=== PATIENT | female | born 1955 | race Caucasian/White ===

== ENCOUNTER → 2016-07-22 | Outpatient (CLI) | payer MEDICARE, MEDICAID ==
--- NOTE | 2016-07-22 14:39 | RAD ---
EXAM DESCRIPTION: XR KNEE 4 OR MORE VIEWS CLINICAL HISTORY: 61 y/o ,F, RT KNEE PAIN COMPARISON: May 25, 2014 IMPRESSION: Right knee arthroplasty noted. Patellar resurfacing noted. There is a small joint effusion noted. No evidence of hardware failure. No evidence of surrounding osteolysis or fracture on today's study. Electronically signed by: Jarvis Hollingsworth MD 07/22/2016 14:38
== END ==
LOC: RAD 12:21
PROVIDERS: ATTEND Nurse Practitioner Family
DX: M25.561 Pain in right knee (principal); M25.461 Effusion, right knee; Z96.651 Presence of right artificial knee joint

== ENCOUNTER → 2016-09-23 | Outpatient (CLI) | payer MEDICARE, MEDICAID ==
--- NOTE | 2016-09-23 13:28 | RAD ---
EXAM DESCRIPTION: Foot,Left 3 Views CLINICAL HISTORY: 61 years Female, GOUT IMPRESSION: Three views of the left foot demonstrate a calcaneal spur and gastrocnemius enthesophyte. Degenerative change of the first MTP joint noted. No fracture noted. The characteristic findings of gout including overhanging edges and tophi are not visualized on today's study. Electronically signed by: Jarvis Hollingsworth MD 09/23/2016 1:26 PM CDT
== END | disposition home or self-care (01) ==
LOC: YCFC.O 12:32
PROVIDERS: ATTEND Nurse Practitioner Family
DX: M10.9 Gout, unspecified (principal)

== ENCOUNTER → 2016-10-27 | Outpatient (CLI) | payer MEDICARE, MEDICAID ==
--- NOTE | 2016-10-28 08:55 | RAD ---
EXAM DESCRIPTION: Foot,Right 3 Views CLINICAL HISTORY: 61 years Female, RT HEEL PAIN IMPRESSION: Three views of right foot. Severe degenerative change of the first MTP joint with complete joint space loss, subchondral sclerosis and large osteophytes. Gastrocnemius enthesophyte and plantar spur noted. No fracture. No radiopaque foreign body. Electronically signed by: Jarvis Hollingsworth MD 10/28/2016 8:54 AM CDT
== END | disposition home or self-care (01) ==
LOC: RAD 15:57
PROVIDERS: ATTEND Nurse Practitioner Family
DX: M77.31 Calcaneal spur, right foot (principal)

== ENCOUNTER 2017-04-25 11:46 | Emergency (ER) | payer MEDICARE, MEDICAID ==
[2017-04-25] MEDS ORDERED: HYDROcodone 5MG/APAP 325MG 1 EA TAB PO ONE (12:02)
[2017-04-25 12:04] VITALS: BP 136/75; TEMP 98; O2SAT 95
--- NOTE | 2017-04-25 12:19 | RAD ---
EXAM DESCRIPTION: Ankle,Right 3 Views CLINICAL HISTORY: 61 years Female, lateral ankle pain after twisting COMPARISON: None. TECHNIQUE: 3 views FINDINGS: Plantar calcaneal spur formation. Mortise configuration is intact. No fractures identified. There is lateral soft tissue swelling. IMPRESSION: Lateral soft tissue swelling No fractures Electronically signed by: Nikunj Alexander 04/25/2017 12:18 PM CDT
[2017-04-25] MEDS ORDERED: NEOMYCIN-BACITRACIN-POLYMYXIN 0.9 GM UD TOP ONE (12:22)
--- NOTE | 2017-04-25 12:29 | ED.PDOC ---
History of Present Illness - General Chief Complaint: Lower Extremity Injury Stated Complaint: twisted right ankle/post heel surgery Time Seen by Provider: 04/25/17 12:00 Source: patient Exam Limitations: no limitations - History of Present Illness Initial Comments: the patient is a 61-year-old female presenting to the emergency room secondary to pain in her right ankle after having twisted it this morning. She is primarily having pain over the lateral aspect of the ankle. No gross deformity except there is some swelling around the ankle. She did already have some swelling due to a previous surgery with podiatry for a foot spur. There is a small pustule along the line of the surgical line to the posterior aspect of the heel from that surgery 3 weeks ago. There is mild surrounding erythema. She has tenderness to palpation around the operative site but reports that it has been that way since the surgery itself. She has follow-up with that surgeonand approximately 2-3 weeks.the ankle mortise itself appears stable. There is no bony crepitus. No laceration. No tenderness over the fifth metacarpal. She appears to be neurovascularly at her baseline. Timing/Duration: momentarily Severity: moderate Improving Factors: immobilization Worsening Factors: movement Associated Symptoms: denies symptoms Allergies/Adverse Reactions: Allergies NO KNOWN ALLERGY Allergy (Verified 04/24/13 11:30) Home Medications: Ambulatory Orders Fsunxfhepegxr-Ncpp-Nvawrakyyv [Fioricet] 1 ea PO Q8H PRN #21 tab 04/25/17 Sulfa/Trimeth 800/160 (Ds) Tab [Bactrim DS Tab] 1 ea PO BID #20 tab 04/25/17 Review of Systems - Review of Systems Constitutional: States: no symptoms reported EENTM: States: no symptoms reported Respiratory: States: no symptoms reported Cardiology: States: no symptoms reported Gastrointestinal/Abdominal: States: no symptoms reported Genitourinary: States: no symptoms reported Musculoskeletal: States: see HPI Skin: States: no symptoms reported Neurological: States: no symptoms reported Endocrine: States: no symptoms reported All other Systems: No Change from Baseline Past Medical History (General) - Patient Medical History Hx Diabetes: Yes Hx MRSA: Yes - Back 2009 MRSA Source:: Wound Surgical History: other - Social History Hx Tobacco Use: Yes Family Medical History - Family History Father Living Status: Age at (years of age): 75 Hx Family Cancer: Yes Hx Family;Other: COPD Physical Exam - Physical Exam General Appearance: Alert, Comfortable, No apparent distress Eye Exam: bilateral normal Ears, Nose, Throat: hearing grossly normal Neck: full range of motion, normal inspection Respiratory: no respiratory distress, no accessory muscle use Cardiovascular/Chest: normal peripheral pulses, no edema, other - regular rate Peripheral Pulses: radial,right: 2+, radial,left: 2+, dorsalis pedis,right: 2+, dorsalis pedis,left: 2+ Rectal Exam: deferred Extremity: normal range of motion, no calf tenderness, normal capillary refill, other - see history of present illness Neurologic: tool builder II-XII nml as tested, alert, normal mood/affect, oriented x 3 Skin Exam: normal color - ith the exception of the mild cellulitis surrounding the posterior right heel. Comments: Vital Signs - 24 hr 04/25/17 11:50 Temperature 98.0 F Pulse Rate [ 89 pulse ox] Respiratory 22 Rate Blood Pressure 136/75 [left brachial] O2 Sat by Pulse 95 Oximetry Progress - Progress Progress: 04/25/17 12:31 the patient is a 61-year-old female presenting to the emergency room secondary to twisting her right ankle. This appears to be an ankle sprain only as the x- ray of the ankle shows no evidence of fracture or dislocation. The patient does have a mild cellulitis surrounding the pustule to the posterior aspect of the right heel along the line of the previous surgical site. We did unroofed the pustule and perform a culture. The patient is going to be placed on 10 days of Bactrim. She does need to take this with food. She needs to follow-up with her primary care doctor around the middle of next week for the culture result and a reevaluation of the area. She needs to continue to use her walking boot. Obviously if the area is getting more red or she starts developing a fever then she will need a repeat evaluation. ER warnings were given otherwise. Departure - Departure Clinical Impression: Cellulitis of heel, right Right ankle sprain Qualifiers: Encounter type: initial encounter Involved ligament of ankle: unspecified ligament Qualified Code(s): S93.401A - Sprain of unspecified ligament of right ankle, initial encounter Disposition: Discharge to Home or Self Care Condition: Fair Departure Forms: ED Discharge - Pt. Copy, Patient Portal Self Enrollment Instructions: DI for Trauma Diet: regular diet Activity: increase activity as tolerated Referrals: Julio Cesar Lebron MD [Primary Care Provider] - 1-5 Days Prescriptions: Hylisijufamzq-Eytq-Pegfdbhgtk [Fioricet] 1 ea PO Q8H PRN #21 tab PRN Reason: Pain Sulfa/Trimeth 800/160 (Ds) Tab [Bactrim DS Tab] 1 ea PO BID #20 tab Home Medications: Ambulatory Orders Qacugwjlvhhjy-Pjrt-Frzqsahkwe [Fioricet] 1 ea PO Q8H PRN #21 tab 04/25/17 Sulfa/Trimeth 800/160 (Ds) Tab [Bactrim DS Tab] 1 ea PO BID #20 tab 04/25/17 Additional Instructions: the patient is a 61-year-old female presenting to the emergency room secondary to twisting her right ankle. This appears to be an ankle sprain only as the x- ray of the ankle shows no evidence of fracture or dislocation. The patient does have a mild cellulitis surrounding the pustule to the posterior aspect of the right heel along the line of the previous surgical site. We did unroofed the pustule and perform a culture. The patient is going to be placed on 10 days of Bactrim. She does need to take this with food. She needs to follow-up with her primary care doctor around the middle of next week for the culture result and a reevaluation of the area. She needs to continue to use her walking boot. Obviously if the area is getting more red or she starts developing a fever then she will need a repeat evaluation. ER warnings were given otherwise.
== END 2017-04-25 12:46 | disposition home or self-care (01) ==
LOC: ER 11:46
DX: S93.401A Sprain of unspecified ligament of right ankle, initial encounter (principal); L03.115 Cellulitis of right lower limb; E11.9 Type 2 diabetes mellitus without complications; Z86.14 Personal history of Methicillin resistant Staphylococcus aureus infection; Z79.899 Other long term (current) drug therapy; X50.1XXA Overexertion from prolonged static or awkward postures, initial encounter; Y92.9 Unspecified place or not applicable

== ENCOUNTER → 2017-10-01 | Outpatient (CLI) | payer MEDICARE, MEDICAID ==
--- NOTE | 2017-10-02 08:10 | RAD ---
EXAM DESCRIPTION: KUB CLINICAL HISTORY: ABDOMINAL DISTENSION (GASEOUS) COMPARISON: CT abdomen May 26, 2016 TECHNIQUE: KUB FINDINGS: Moderate amount of fecal material seen in the right colon and transverse colon whereas the descending colon and rectal region appear clear. There is an otherwise unremarkable bowel gas pattern. Mild degenerative sclerosis at the SI joints. Transitional lumbosacral vertebrae is present. Degenerative changes are seen of the pubic symphysis. There is no mass or visceromegaly or calculus observed. IMPRESSION: No acute process. Electronically signed by: Nas Espinoza MD 10/02/2017 8:07 AM CDT
== END ==
LOC: RAD 09:20
PROVIDERS: ATTEND Nurse Practitioner Family
DX: R14.0 Abdominal distension (gaseous) (principal)

== ENCOUNTER 2018-03-05 02:07 | Emergency (ER) | payer MEDICARE, MEDICAID ==
[2018-03-05] MEDS ORDERED: KETOROLAC TROMETHAMINE INJ 30 MG/ML VIAL IM ONE (02:28)
[2018-03-05] MEDS ORDERED: HYDROcodone 7.5MG/APAP 325MG 1 EA TAB PO ONE (02:28)
[2018-03-05] MEDS ORDERED: CYCLOBENZAPRINE HCL 10 MG TAB PO ONE (02:28)
[2018-03-05] MEDS ORDERED: predniSONE 20 MG TAB PO ONE (02:28)
--- NOTE | 2018-03-05 02:30 | ED.PDOC ---
History of Present Illness - General Chief Complaint: Back Pain or Injury Stated Complaint: rt side lower back pain. Time Seen by Provider: 03/05/18 02:09 Source: patient Exam Limitations: no limitations - History of Present Illness Initial Comments: the patient's a 62-year-old female presenting to emergency room secondary to right lower back pain. The patient does have known chronic DJD of the lumbar spine and does get exacerbations on that side about 3 or 4 times per year according to her. She has not recently injured it however she did overdo it about 3 days ago and has since been having some muscle spasm on that side that has gotten worse. No sciatica down the leg. No incontinence. No weakness. No trauma. She does have obvious palpable muscle spasm. No spinous process tenderness to palpation. No bruising. No step-off. Timing/Duration: other Severity: severe Improving Factors: immobilization Worsening Factors: movement Associated Symptoms: denies symptoms Allergies/Adverse Reactions: Allergies NO KNOWN ALLERGY Allergy (Verified 04/24/13 11:30) Home Medications: Ambulatory Orders Esrwpmkgrlyzz-Kerz-Agverwfqel [Fioricet] 1 ea PO Q8H PRN #21 tab 04/25/17 Sulfa/Trimeth 800/160 (Ds) Tab [Bactrim DS Tab] 1 ea PO BID #20 tab 04/25/17 Gwxjdpjhodcio-Jcef-Ekpszsomnz [Fioricet] 1 ea PO Q8H PRN #21 tab 03/05/18 Cyclobenzaprine HCl [Flexeril] 5 mg PO TID PRN #30 tab 03/05/18 predniSONE [Prednisone] 20 mg PO DAILY #7 tab 03/05/18 Review of Systems - Review of Systems Constitutional: States: no symptoms reported EENTM: States: no symptoms reported Respiratory: States: no symptoms reported Cardiology: States: no symptoms reported Gastrointestinal/Abdominal: States: no symptoms reported Genitourinary: States: no symptoms reported Musculoskeletal: States: back pain Skin: States: no symptoms reported Neurological: States: no symptoms reported Endocrine: States: no symptoms reported All other Systems: No Change from Baseline Past Medical History (General) - Patient Medical History Hx Diabetes: Yes Hx MRSA: Yes - Back 2009 MRSA Source:: Wound - Social History Hx Tobacco Use: Yes Family Medical History - Family History Father Living Status: Age at (years of age): 75 Hx Family Cancer: Yes Hx Family;Other: COPD Physical Exam - Physical Exam General Appearance: Alert Eye Exam: bilateral normal Ears, Nose, Throat: hearing grossly normal Neck: full range of motion, supple Respiratory: no respiratory distress, no accessory muscle use Cardiovascular/Chest: normal peripheral pulses, no edema Peripheral Pulses: radial,right: 2+, radial,left: 2+ Gastrointestinal/Abdominal: non tender - obese, soft Rectal Exam: deferred Back Exam: muscle spasm, other - see history of present illness Extremity: normal range of motion, non-tender, normal inspection, no pedal edema , normal capillary refill Neurologic: boston cutter II-XII nml as tested, alert, normal mood/affect, oriented x 3 Skin Exam: normal color Progress - Progress Progress: 03/05/18 02:30 the patient's 62-year-old female presenting to emergency room secondary to acute on chronic low back pain. She is having significant muscle spasm adding to her pain. The patient is being given a dose of a muscle relaxer , pain medication, and 2 anti-inflammatories. She'll be placed on outpatient prescriptions of oral prednisone and Flexeril and Fioricet. Topical heat and icy hot or Biofreeze may also prove beneficial. She does need to do stretching exercises to help reduce muscle spasm. ER warnings are given for any significant worsening. She can follow up with her primary care doctor next week. Departure - Departure Clinical Impression: Low back pain Qualifiers: Chronicity: acute Back pain laterality: right Sciatica presence: without sciatica Qualified Code(s): M54.5 - Low back pain Disposition: Discharge to Home or Self Care Condition: Fair Departure Forms: ED Discharge - Pt. Copy, Patient Portal Self Enrollment Instructions: DI for Low Back Pain, DI for Back Strain or Sprain Diet: regular diet Activity: increase activity as tolerated Referrals: Julio Cesar Lebron MD [Primary Care Provider] - 1-2 Weeks Prescriptions: Hfoymodpvagko-Nqlu-Mlgqnhjyvy [Fioricet] 1 ea PO Q8H PRN #21 tab PRN Reason: Pain Cyclobenzaprine HCl [Flexeril] 5 mg PO TID PRN #30 tab PRN Reason: Muscle Spasms predniSONE [Prednisone] 20 mg PO DAILY #7 tab Home Medications: Ambulatory Orders Osyvanrddqtwu-Rsdm-Qfkdqbomcq [Fioricet] 1 ea PO Q8H PRN #21 tab 04/25/17 Sulfa/Trimeth 800/160 (Ds) Tab [Bactrim DS Tab] 1 ea PO BID #20 tab 04/25/17 Zmogseuewdvct-Tqsd-Goadnxfjkw [Fioricet] 1 ea PO Q8H PRN #21 tab 03/05/18 Cyclobenzaprine HCl [Flexeril] 5 mg PO TID PRN #30 tab 03/05/18 predniSONE [Prednisone] 20 mg PO DAILY #7 tab 03/05/18 Additional Instructions: the patient's 62-year-old female presenting to emergency room secondary to acute on chronic low back pain. She is having significant muscle spasm adding to her pain. The patient is being given a dose of a muscle relaxer , pain medication, and 2 anti-inflammatories. She'll be placed on outpatient prescriptions of oral prednisone and Flexeril and Fioricet. Topical heat and icy hot or Biofreeze may also prove beneficial. She does need to do stretching exercises to help reduce muscle spasm. ER warnings are given for any significant worsening. She can follow up with her primary care doctor next week.
[2018-03-05 02:34] VITALS: BP 144/64; TEMP 97.2; O2SAT 96
== END 2018-03-05 02:50 | disposition home or self-care (01) ==
LOC: ER 02:07
DX: M54.5 Low back pain (principal); M47.896 Other spondylosis, lumbar region; E11.9 Type 2 diabetes mellitus without complications; Z88.6 Allergy status to analgesic agent; Z88.2 Allergy status to sulfonamides; Z88.8 Allergy status to other drugs, medicaments and biological substances
CPT/HCPCS: J1885; J7512

== ENCOUNTER → 2019-06-03 | Outpatient (CLI) | payer MEDICARE, MEDICAID ==
--- NOTE | 2019-06-06 11:58 | MAM ---
EXAM DESCRIPTION: 3D Screening BILATERAL : Digital Mammography. CLINICAL HISTORY: 64 years Female ANNUAL SCREENING . No complaints. No personal or family history of breast cancer. Menarche age 12. Childbirth at age 16. Postmenopausal age 55. No HRT. Lifetime risk of developing breast cancer (Tyrer-Cuzick model)(%): 4.7. COMPARISON: 2-D digital screening bilateral mammography 08 March 2014.. TECHNIQUE: Bilateral CC and MLO projection full-field images, digital tomosynthesis mammographic technique Bilateral digital 2-D full-field MLO images. CAD not available for tomosynthesis or 2-D images. FINDINGS: The breast parenchymal density pattern is: Scattered areas of fibroglandular density. No skin thickening or nipple retraction. No new focal, stellate mass or density, focal asymmetry , and no suspicious microcalcifications bilaterally. Stable mammograms compared to prior study. Taking into account, differences in mammographic technique. IMPRESSION: BI-RADS CATEGORY: 1 - NEGATIVE FOLLOW UP: Routine digital bilateral screening, one year interval from May 2019. Written communication explaining the findings and follow-up, will be mailed to the patient and referring health care provider. According to the [employer], yearly mammograms are recommended starting at age 40 and continuing as long as a woman is in good health. Any breast change noted on a breast self-exam should be reported promptly to the patient's healthcare provider. Breast MRI is recommended for women with an approximately 20-25% or greater lifetime risk of breast cancer, including women with a strong family history of breast or ovarian cancer and women who have been treated for Hodgkin's disease. A negative mammographic report should not delay tissue diagnosis in patients with significant clinical history or physical findings. Extremely dense breast tissue limits the sensitivity of digital mammography. Electronically signed by: Aguilar Mireles MD 06/06/2019 11:56 AM [facility]
== END | disposition home or self-care (01) ==
LOC: MAMMO 11:30
PROVIDERS: ATTEND Nurse Practitioner Family
DX: Z12.31 Encounter for screening mammogram for malignant neoplasm of breast (principal)

== ENCOUNTER 2019-06-19 13:03 | Emergency (ER) | payer MEDICARE, MEDICAID ==
[2019-06-19] MEDS ORDERED: ALPRAZolam 0.25 MG TAB PO ONE (13:11)
[2019-06-19 13:23] VITALS: TEMP 98.5
[2019-06-19] MEDS ORDERED: ALPRAZolam 0.5 MG TAB ONE (13:26)
[2019-06-19 14:51] VITALS: O2SAT 100
--- NOTE | 2019-06-19 15:23 | CT ---
EXAM DESCRIPTION: CT head without contrast. CLINICAL HISTORY: new seizure vs seizure like activity . COMPARISON: None Available. TECHNIQUE: Contiguous axial sections are obtained as per protocol. Sagittal and coronal reformations are submitted Automatic exposure control (AEC), mA and/or kV adjustment by patient size, and/or iterative reconstructive technique was used, per departmental dose optimization program, during the performance of the CT examination. FINDINGS: Ventricles, sulci and cisterns appear normal. Normal henry-white matter differentiation is noted. No evidence of intra or extra-axial hemorrhage, hematoma, mass, mass effect or midline shift is noted. The posterior fossa structures appear normal. The bony calvarium appears intact. The soft tissues of the scalp appear unremarkable. Normal appearance of the orbits are noted. The paranasal sinuses and mastoids appear normal. IMPRESSION: Unremarkable non contrast enhanced CT examination of brain. Electronically signed by: Val Oliveira MD 06/19/2019 3:21 PM [employer]ANDSC[employer]IST
--- NOTE | 2019-06-19 15:25 | RAD ---
EXAM: XR Chest, 1 View CLINICAL HISTORY: szr new, vs pseudoseizure TECHNIQUE: Frontal view of the chest. COMPARISON: No relevant prior studies available. FINDINGS: Limitations: None. Lungs: Unremarkable. No consolidation. Pleural space: Unremarkable. No pneumothorax. Heart: Unremarkable. No cardiomegaly. Mediastinum: Unremarkable. Bones/joints: Unremarkable. IMPRESSION: No acute findings in the chest. Electronically signed by: Shanna Nick MD 06/19/2019 3:23 PM DIRECTOR OF CLOUD SERVICES
[2019-06-19 15:26] VITALS: BP 129/78
--- NOTE | 2019-06-19 16:07 | ED.PDOC ---
History of Present Illness - General Chief Complaint: Neuro Symptoms/Deficits Stated Complaint: SEIZURE Time Seen by Provider: 06/19/19 13:10 Source: patient Exam Limitations: no limitations - History of Present Illness Initial Comments: the patient is a 64-year-old female presenting to the emergency room secondary to agitation that started about 20 minutes prior to arrival. The patient is obviously hyperventilating. She is very anxious. She cannot remain still. She is having pushing and pulling and kicking in stopping movements in her extremities. No loss of consciousness. When she is distracted by getting an IV she can be still. When she is distracted by discussing her symptoms she can be still. She is very agitated in general. No focal pain. She does have a [id number] headache. No syncope. Timing/Duration: 1/2 hour Severity: moderate Improving Factors: nothing Worsening Factors: nothing Associated Symptoms: shortness of breath - mild Allergies/Adverse Reactions: Allergies NO KNOWN ALLERGY Allergy (Verified 04/24/13 11:30) Home Medications: Ambulatory Orders Cevsjewruaogr-Mnqi-Gehqcuxtyi [Fioricet] 1 ea PO Q8H PRN #21 tab 04/25/17 Sulfa/Trimeth 800/160 (Ds) Tab [Bactrim DS Tab] 1 ea PO BID #20 tab 04/25/17 Wgiljfsmvtmkb-Duhs-Utbwcyxphu [Fioricet] 1 ea PO Q8H PRN #21 tab 03/05/18 Cyclobenzaprine HCl [Flexeril] 5 mg PO TID PRN #30 tab 03/05/18 predniSONE [Prednisone] 20 mg PO DAILY #7 tab 03/05/18 Review of Systems - Review of Systems Constitutional: States: no symptoms reported EENTM: States: no symptoms reported Respiratory: States: short of breath Cardiology: States: no symptoms reported Gastrointestinal/Abdominal: States: no symptoms reported Genitourinary: States: no symptoms reported Musculoskeletal: States: no symptoms reported Skin: States: no symptoms reported Neurological: States: anxiety, tremors Endocrine: States: no symptoms reported All other Systems: No Change from Baseline Past Medical History (General) - Patient Medical History Hx Diabetes: Yes Hx MRSA: Yes - 2009 MRSA Source:: Wound - Vaccination History Hx Tetanus, Diphtheria Vaccination: No Hx Influenza Vaccination: No Hx Pneumococcal Vaccination: No - Social History Hx Tobacco Use: Yes Hx Alcohol Use: No Family Medical History - Family History Father Living Status: Age at (years of age): 75 Hx Family Cancer: Yes Hx Family;Other: COPD Physical Exam - Physical Exam General Appearance: Alert, Anxious Eye Exam: bilateral normal Ears, Nose, Throat: hearing grossly normal, other - poor dentition Neck: full range of motion, supple Respiratory: lungs clear, normal breath sounds, no respiratory distress, no accessory muscle use Cardiovascular/Chest: normal peripheral pulses, no edema Peripheral Pulses: radial,right: 2+, radial,left: 2+ Gastrointestinal/Abdominal: non tender, soft Rectal Exam: deferred Back Exam: no CVA tenderness, no vertebral tenderness Extremity: normal range of motion, non-tender, normal inspection, no pedal edema, normal capillary refill Neurologic: sizer machine II-XII nml as tested, no motor/sensory deficits, alert, oriented x 3, other - highly agitated and anxious. He is alert and oriented. Skin Exam: normal color Comments: Vital Signs - 24 hr 06/19/19 06/19/19 06/19/19 13:08 13:31 14:30 Temperature 98.5 F Pulse Rate [lef 81 79 76 ] Respiratory 56 H 28 H 19 Rate Blood Pressure 139/70 135/74 123/78 [left brachial] O2 Sat by Pulse 97 97 100 Oximetry 06/19/19 15:00 Temperature Pulse Rate [lef 73 ] Respiratory 24 Rate Blood Pressure 129/78 [left brachial] O2 Sat by Pulse 100 Oximetry Progress - Progress Progress: 06/19/19 16:10 the patient is a 64-year-old female presenting with abnormal movements, obviously hyperventilating and having an anxiety attack along with it. The patient is distractible. I do not believe that this is seizure activity. After further questioning the patient does admit to methamphetamine use. This is likely the source. The patient is no longer having any movement issues and she is much calmer. Vital signs have remained stable. She will be allowed to go home with instructions to discontinue methamphetamine use. Head CT showed no evidence of any acute pathology. - Results/Orders Results/Orders: telemetry shows normal sinus rhythm. EKG shows normal sinus rhythm at [address] segment or T-wave changes indicative of acute ischemia. Slow R-wave progression. Normal axis. Borderline QT interval. Laboratory Results - last 24 hr 06/19/19 06/19/19 06/19/19 13:25 13:25 13:25 WBC 7.5 RBC 4.11 L Hgb 11.9 L Hct 36.4 MCV 88.4 MCH 28.8 MCHC 32.6 L RDW 14.0 Plt Count 331 MPV 8.5 Absolute Neuts (auto) 3.60 Absolute Lymphs (auto) 3.10 Absolute Monos (auto) 0.50 Absolute Eos (auto) 0.20 Absolute Basos (auto) 0.10 Neutrophils % 47.7 Lymphocytes % 41.6 Monocytes % 6.6 Eosinophils % 2.8 Basophils % 1.3 Sodium 141 Potassium 4.1 Chloride 109 Carbon Dioxide 21 Anion Gap 15.1 BUN 13 Creatinine 1.02 BUN/Creatinine Ratio 12.7 POC Glucose 77 Random Glucose 94 Hemoglobin A1c Serum Osmolality 281.1 Lactic Acid Calcium 9.1 Magnesium 2.1 Total Bilirubin 0.6 AST 22 ALT 12 Alkaline Phosphatase 65 Creatine Kinase 93 CK-MB (CK-2) 1.6 CK-MB (CK-2) % Not Reportable Troponin I < 0.02 Serum Total Protein 6.9 Albumin 3.8 Globulin 3.1 Albumin/Globulin Ratio 1.2 TSH 2.18 Urine Color Urine Appearance Urine pH Ur Specific Raven Urine Protein Urine Glucose (UA) Urine Ketones Urine Blood Urine Nitrite Urine Bilirubin Urine Urobilinogen Ur Leukocyte Esterase Urine RBC Urine WBC Ur Epithelial Cells Urine Bacteria Urine Opiates Screen Urine Barbiturates Ur Phencyclidine Scrn U Amphetamin/Meth Scrn U Benzodiazepines Scrn U Cocaine Metab Screen U Cannabinoids Screen 06/19/19 06/19/19 06/19/19 13:25 13:46 13:52 WBC RBC Hgb Hct MCV MCH MCHC RDW Plt Count MPV Absolute Neuts (auto) Absolute Lymphs (auto) Absolute Monos (auto) Absolute Eos (auto) Absolute Basos (auto) Neutrophils % Lymphocytes % Monocytes % Eosinophils % Basophils % Sodium Potassium Chloride Carbon Dioxide Anion Gap BUN Creatinine BUN/Creatinine Ratio POC Glucose Random Glucose Hemoglobin A1c 5.6 Serum Osmolality Lactic Acid 2.1 Calcium Magnesium Total Bilirubin AST ALT Alkaline Phosphatase Creatine Kinase CK-MB (CK-2) CK-MB (CK-2) % Troponin I Serum Total Protein Albumin Globulin Albumin/Globulin Ratio TSH Urine Color Urine Appearance Urine pH Ur Specific Raven Urine Protein Urine Glucose (UA) Urine Ketones Urine Blood Urine Nitrite Urine Bilirubin Urine Urobilinogen Ur Leukocyte Esterase Urine RBC Urine WBC Ur Epithelial Cells Urine Bacteria Urine Opiates Screen Negative Urine Barbiturates Positive H Ur Phencyclidine Scrn Negative U Amphetamin/Meth Scrn Positive H U Benzodiazepines Scrn Negative U Cocaine Metab Screen Negative U Cannabinoids Screen Negative 06/19/19 13:54 WBC RBC Hgb Hct MCV MCH MCHC RDW Plt Count MPV Absolute Neuts (auto) Absolute Lymphs (auto) Absolute Monos (auto) Absolute Eos (auto) Absolute Basos (auto) Neutrophils % Lymphocytes % Monocytes % Eosinophils % Basophils % Sodium Potassium Chloride Carbon Dioxide Anion Gap BUN Creatinine BUN/Creatinine Ratio POC Glucose Random Glucose Hemoglobin A1c Serum Osmolality Lactic Acid Calcium Magnesium Total Bilirubin AST ALT Alkaline Phosphatase Creatine Kinase CK-MB (CK-2) CK-MB (CK-2) % Troponin I Serum Total Protein Albumin Globulin Albumin/Globulin Ratio TSH Urine Color Yellow Urine Appearance Sl cloudy Urine pH 6.0 Ur Specific Raven 1.025 Urine Protein Negative Urine Glucose (UA) Negative Urine Ketones Trace Urine Blood Negative Urine Nitrite Negative Urine Bilirubin Negative Urine Urobilinogen 0.2 Ur Leukocyte Esterase Negative Urine RBC 0 Urine WBC 0 Ur Epithelial Cells 10-20 Urine Bacteria Rare Urine Opiates Screen Urine Barbiturates Ur Phencyclidine Scrn U Amphetamin/Meth Scrn U Benzodiazepines Scrn U Cocaine Metab Screen U Cannabinoids Screen head CT showed no acute intracranial pathology. ee report for details. Departure - Departure Clinical Impression: Substance abuse, Panic attack Disposition: Discharge to Home or Self Care Condition: Fair Departure Forms: ED Discharge - Pt. Copy, Patient Portal Self Enrollment Instructions: Drug Abuse and Drug Addiction (DC), Anxiety, Adult (DC) Diet: regular diet Activity: increase activity as tolerated Referrals: Emi Valencia NP [Primary Care Provider] - 1-2 Weeks Home Medications: Ambulatory Orders Vajmodzsyhbvk-Ziku-Heybvqopgg [Fioricet] 1 ea PO Q8H PRN #21 tab 04/25/17 Sulfa/Trimeth 800/160 (Ds) Tab [Bactrim DS Tab] 1 ea PO BID #20 tab 04/25/17 Ikiprynidcvrl-Avdr-Dnexyohnah [Fioricet] 1 ea PO Q8H PRN #21 tab 03/05/18 Cyclobenzaprine HCl [Flexeril] 5 mg PO TID PRN #30 tab 03/05/18 predniSONE [Prednisone] 20 mg PO DAILY #7 tab 03/05/18 Additional Instructions: The patient is a 64-year-old female that appears to have arrived to the emergency room due to an abnormal reaction to illicit substance use. She needs to discontinue this use. The patient is not diabetic. Her hemoglobin A1c was 5.6. She needs to follow-up with her primary care doctor. ER warnings were given. Workup was reassuring otherwise here.
== END 2019-06-19 16:30 | disposition home or self-care (01) ==
LOC: ER 13:03
DX: F41.0 Panic disorder [episodic paroxysmal anxiety] (principal); F15.10 Other stimulant abuse, uncomplicated; F13.10 Sedative, hypnotic or anxiolytic abuse, uncomplicated; R51 Headache; E11.9 Type 2 diabetes mellitus without complications; Z87.891 Personal history of nicotine dependence

== ENCOUNTER 2020-02-26 12:46 | Emergency (ER) | payer MEDICAID, MEDICARE, OTHER ==
[2020-02-26] MEDS ORDERED: ACETAMINOPHEN 500 MG TAB PO ONE (13:07)
--- NOTE | 2020-02-26 13:21 | ED.PDOC ---
History of Present Illness - General Chief Complaint: Headache Stated Complaint: Headache and possible seizure (not postictal) Time Seen by Provider: 02/26/20 13:06 Source: patient, EMS Exam Limitations: no limitations Additional Information: The patient is a 64 year old with no significant medical history (reports that she has restless legs for which she takes HCTZ?) who is brought in for mental status change, possible seizure. She is currently incarcerated and the correction staff reported finding her "unresponsive and cold" for which they called EMS. Per EMS report, she woke immediately upon arrival as they were going to place an IV. She did not have any tongue biting or any incontinence. She reports one prior similar episode while in correction, she does not have any known seizure history. EMS reports they have seen her before for same complaint and she woke when they were trying to place the IV. The patient states that she does not remember what happened and that she has a generalized headache. No other complaints at this time. - History of Present Illness Timing/Duration: resolved prior to arrival Severity: moderate Improving Factors: nothing Worsening Factors: nothing Associated Symptoms: headaches, seizure Allergies/Adverse Reactions: Allergies NO KNOWN ALLERGY Allergy (Verified 02/26/20 13:10) Home Medications: Ambulatory Orders Hydrochlorothiazide 25 mg PO DAILY 02/26/20 Review of Systems - Review of Systems Constitutional: States: malaise. Denies: chills, fever EENTM: States: no symptoms reported Respiratory: States: no symptoms reported. Denies: cough, short of breath Cardiology: Denies: chest pain, palpitations, syncope Gastrointestinal/Abdominal: Denies: abdominal pain, nausea, vomiting Genitourinary: States: no symptoms reported Musculoskeletal: States: no symptoms reported Skin: Denies: change in color, lesions, rash Neurological: States: headache, seizure. Denies: numbness, weakness Endocrine: States: no symptoms reported Hematologic/Lymphatic: States: no symptoms reported All other Systems: Reviewed and Negative Past Medical History (General) - Patient Medical History Hx Seizures: No Hx Stroke: No Hx of COPD: No Hx Cardiac Disorders: No Hx Congestive Heart Failure: No Hx Hypertension: No Hx Diabetes: No Hx Cancer: No Hx MRSA: Yes - Back 2009 MRSA Source:: Wound - Vaccination History Hx Tetanus, Diphtheria Vaccination: No Hx Influenza Vaccination: No Hx Pneumococcal Vaccination: No - Social History Hx Tobacco Use: No Hx Alcohol Use: Yes Hx Substance Use: No Hx Substance Use Treatment: No Hx Depression: No - Female History Patient is a Female of Child Bearing Age (10 -59 yrs old): No Patient : No Family Medical History - Family History Father Living Status: Age at (years of age): 75 Hx Family Cancer: Yes Hx Family;Other: COPD Physical Exam - Physical Exam General Appearance: Comfortable, No apparent distress Eye Exam: bilateral normal Ears, Nose, Throat: normal ENT inspection, other - no tongue laceration or lesions Neck: non-tender, full range of motion Respiratory: normal breath sounds, no respiratory distress, no accessory muscle use Cardiovascular/Chest: regular rate, rhythm, no murmur Gastrointestinal/Abdominal: non tender, soft Extremity: normal range of motion Neurologic: no motor/sensory deficits, alert, oriented x 3 Progress - Progress Progress: 02/26/20 13:45 EKG STAT Laboratory Results - last 24 hr 02/26/20 02/26/20 13:28 13:50 Sodium 140 Potassium 3.5 L Chloride 103 Carbon Dioxide 27 Anion Gap 13.5 BUN 18 Creatinine 0.98 BUN/Creatinine Ratio 18.4 Random Glucose 128 H Serum Osmolality 282.9 Lactic Acid 1.0 Calcium 9.3 Total Bilirubin 0.7 AST 17 ALT 15 Alkaline Phosphatase 64 Serum Total Protein 7.2 Albumin 4.0 Globulin 3.2 Albumin/Globulin Ratio 1.3 02/26/20 14:21 Patient reassessed, she is awake, alert and oriented. Workup as above. There is no acute intracranial abnormality. Doubt seizure activity. Okay to return to correction facility, follow up with [facility]. - EKG/XRAY/CT Comments: 1254 normal sinus rhythm at 75, normal axis, normal intervals, no STEMI Departure - Departure Clinical Impression: Altered mental status Qualifiers: Altered mental status type: unspecified Qualified Code(s): R41.82 - Altered mental status, unspecified Time of Disposition: 14:22 Disposition: Discharge to Home or Self Care Condition: Fair Departure Forms: ED Discharge - Pt. Copy, Patient Portal Self Enrollment Instructions: DI for Headache, Altered Mental Status (DC) Diet: resume usual diet Activity: increase activity as tolerated Referrals: Emi Valencia NP [Primary Care Provider] - 1-2 Weeks Home Medications: Ambulatory Orders Hydrochlorothiazide 25 mg PO DAILY 02/26/20 Comments: Matt Sawyer MD Emergency Medicine Physician Number [id number]
--- NOTE | 2020-02-26 13:54 | CT ---
PROCEDURE: CT Head Without Intravenous Contrast CLINICAL INDICATION: The patient is 64 years years old, Female; seizure TECHNIQUE: Axial computed tomography images of the head/brain without intravenous contrast. Sagittal and coronal reformatted images were created and reviewed. This CT exam was performed using one or more of the following dose reduction techniques: automated exposure control, adjustment of the mA and/or kV according to patient size, and/or use of iterative reconstruction technique. COMPARISON: CT head dated 06/19/2018 FINDINGS: BRAIN: Mild prominence of sulci, sylvian fissures and basilar cisterns is consistent with volume loss which may be greater than expected for age. No intracerebral or extracerebral mass lesions are identified. Yoo/white matter distinction is maintained. There is no evidence of intracranial hemorrhage. There are no areas of acute territorial infarct. (It should be noted that acute infarct may not be discernible in the first [address] ) MIDLINE SHIFT: There is no shift of the midline structures. VENTRICLES: The ventricles are normal in size and configuration. BONES/JOINTS: There is no acute calvarial abnormality or other discernible acute osseous abnormalities. SOFT TISSUES: The extracranial soft tissues are unremarkable. SINUSES: The visualized paranasal sinuses are clear with the exception of very mild mucoperiosteal thickening in the right maxillary sinus and left locule of the sphenoid sinus. . There are small bilateral conchae bullosae which can be seen with chronic rhinitis.. MASTOID AIR CELLS: The mastoids and middle ears are clear. IMPRESSION: 1. No acute intracranial abnormality. A negative head CT does not exclude an acute CVA. A followup head CT or MRI is recommended if neurologic symptoms persist. 2. Remainder of findings as discussed above. Electronically signed by: Trinity Buckley MD 02/26/2020 1:52 PM CDT
[2020-02-26 15:56] VITALS: BP 132/73; TEMP 97.6; O2SAT 98
== END 2020-02-26 14:50 | disposition home or self-care (01) ==
LOC: ER 12:46
DX: R41.82 Altered mental status, unspecified (principal); R51 Headache